=== PATIENT | female | born 1960 | race Caucasian/White ===

== ENCOUNTER 2018-09-27 12:34 | Day surgery (SDC) | payer OTHER ==
[~2018-09-27] VITALS: Ht 167.6 cm; Wt 83.7 kg
[~2018-09-27 12:34] MED LIST: ERGO400 PO; FLUO20 PO; PROGESTERONE CREAM TOP; SUMA25 PO
--- NOTE | 2018-09-27 14:49 | NUR ---
09/27/18 1449 Juan José Ardon LATE ENTRY: PT VOMITING DURING PROCEDURE. MEDICATION ADMINISTERED PER ORDER. SEE SEDATION FLOW SCREEN. PT SUCTIONED ORALLY WITH SCANT AMOUNT OF CLEAR CONTENTS. VSS T/O.
== END 2018-09-27 14:50 | disposition home or self-care (01) ==
LOC: ORSCSDS 12:34
PROVIDERS: Surgery
PROC: 0DBK8ZX Excision of Ascending Colon, Via Natural or Artificial Opening Endoscopic, Diagnostic (ICD-10-PCS; principal; 2018-09-27 14:15)
DX: Z12.11 Encounter for screening for malignant neoplasm of colon (principal); D12.2 Benign neoplasm of ascending colon; K57.30 Diverticulosis of large intestine without perforation or abscess without bleeding; Z79.899 Other long term (current) drug therapy
CPT/HCPCS: 88305; J2405; J7120

== ENCOUNTER → 2020-10-31 | Outpatient (CLI) | payer OTHER | END | disposition home or self-care (01) | LOC: PLD 12:04 → LAB SHORT 12:04 | DX: D48.5 Neoplasm of uncertain behavior of skin (principal) | CPT/HCPCS: 88305 ==

== ENCOUNTER 2025-08-10 09:12 | Day surgery (SDC) | payer OTHER ==
[~2025-08-10] VITALS: Ht 166 cm; Wt 85.0 kg
[2025-08-10] VITALS (20 sets, daily range): BP systolic 104–187; BP diastolic 80–122
[2025-08-10] MEDS ORDERED: METOPROLOL SUCC25 MG PO (09:41)
[2025-08-10] MEDS ORDERED: ATOR10 PO (09:41)
--- NOTE | 2025-08-10 09:55 | NUR ---
History, Chart, Medications and Allergies reviewed before start of procedure. Patient up to Ambulate independently. Gait steady. Pre-Op teaching done. Pt verbalizes understanding. Patient confirms NPO status and agrees with scheduled surgery. Patient states colon prep results clear. Patient States Post-Procedure ride home has been arranged.
--- NOTE | 2025-08-10 10:18 | NUR ---
08/10/25 1018 Coral Langley History, Chart, Medications and Allergies reviewed before start of procedure. 3-LEAD EKG REVIEWED WITH PHYSICIAN PRIOR TO START OF PROCEDURE. MONITOR INTACT WITH CONTINUOUS PULSE OXIMETRY, CONTINUOUS END TITAL CO2, 3-LEAD EKG AND INTERMITTENT BLOOD PRESSURE. O2 VIA POM INTACT THROUGHOUT SEDATION/PROCEDURE. PATIENT DETERMINED TO BE ASA APPROPRIATE FOR PROPOFOL SEDATION PRIOR TO START OF PROCEDURE BY
--- NOTE | 2025-08-10 11:36 | NUR ---
Patient States Post-Procedure ride home has been arranged. Discharged via wheelchair to private car for ride home. Discharge instructions reviewed with patient. Patient verbalizes understanding. Copy given to patient to take home.
== END 2025-08-10 23:00 | disposition home or self-care (01) ==
LOC: ORSCMMR 09:12 → ORD 10:30 → ORSCMMR 10:30
PROVIDERS: Surgery
PROC: 0DJD8ZZ Inspection of Lower Intestinal Tract, Via Natural or Artificial Opening Endoscopic (ICD-10-PCS; principal; 2025-08-10 10:30)
DX: Z12.11 Encounter for screening for malignant neoplasm of colon (principal); K57.30 Diverticulosis of large intestine without perforation or abscess without bleeding; Z86.0101 Personal history of adenomatous and serrated colon polyps; I10 Essential (primary) hypertension; E78.5 Hyperlipidemia, unspecified; I47.10 Supraventricular tachycardia, unspecified; Z79.899 Other long term (current) drug therapy
CPT/HCPCS: J2704; J7120